=== PATIENT | female | born 1955 | race Caucasian/White ===

== ENCOUNTER 2016-09-09 14:46 | Emergency (ER) | payer BC, OTHER ==
[2016-09-09 14:51] VITALS: BP 138/87; PULSE 98; TEMP 98.1; BMI 30.1
[2016-09-09] MEDS ORDERED: predniSONE 20 MG TABLET (UD) PO ONE (15:26)
[2016-09-09] MEDS ORDERED: predniSONE 20 MG TABLET (UD) ONE (15:29)
--- NOTE | 2016-09-09 15:34 | PDOC ---
History of Present Illness - General Chief Complaint: Rash Stated Complaint: RASH Time Seen by Provider: 09/09/16 14:51 History Source: Patient Exam Limitations: No Limitations - History of Present Illness Initial Comments: 09/09/16 15:27 60 yr female with history of itchy rash for 3 days. Pt used a different body soap in the shower also started taking tessalon perles about 5 days ago. Pt denies SOB no chest pain, rash is to arms, back, buttocks . Timing/Duration: reports: week Severity: Yes: mild Location: reports: generalized Respiratory Risk Factors: reports: medications, soaps Past History - Past Medical History Allergies/Adverse Reactions: Allergies Allergy/AdvReac Type Severity Reaction Status Date / Time No Known Allergies Allergy Verified 09/09/16 14:51 Home Medications: Ambulatory Orders Zolpidem Tartrate [Ambien] 5 mg PO HS 06/08/12 Guaifenesin Dm [Mucinex Dm -] 1 tab PO BID #14 tab.er.12h 09/23/15 Levofloxacin [Levaquin] 750 mg PO DAILY #7 tablet 09/23/15 Diphenhydramine HCl [Benadryl -] 25 mg PO Q6H PRN #20 capsule 09/09/16 Famotidine [Pepcid -] 20 mg PO DAILY #7 tablet 09/09/16 Prednisone [Deltasone -] 20 mg PO DAILY #7 tablet 09/09/16 Diabetes: Yes (no medications) HTN: Yes - Surgical History Abdominal Surgery: Yes Appendectomy: Yes Cholecystectomy: Yes - Immunization History Immunization Up to Date: No - Psycho/Social/Smoking Cessation Hx Anxiety: No Suicidal Ideation: No Smoking Status: No Smoking History: Never smoked Have you smoked in the past 12 months: No Number of Cigarettes Smoked Daily: 0 Information on smoking cessation initiated: No Hx Alcohol Use: No Drug/Substance Use Hx: No Substance Use Type: None Review of Systems - Review of Systems Able to Perform ROS?: Yes Is the patient limited [place] proficient: No Constitutional: No: Symptoms Reported HEENTM: No: Symptoms Reported Respiratory: No: Symptoms reported Cardiac (ROS): No: Symptoms Reported ABD/GI: No: Symptoms Reported : No: Symptoms Reported Musculoskeletal: No: Symptoms Reported Integumentary: Yes: See HPI *Physical Exam - Vital Signs Last Vital Signs Temp Pulse Resp BP Pulse Ox 98.1 F 98 H 17 138/87 99 09/09/16 14:49 09/09/16 14:49 09/09/16 14:49 09/09/16 14:49 09/09/16 14:49 - Physical Exam General Appearance: Yes: Nourished, Appropriately Dressed HEENT: positive: EOMI, KIRK, TMs Normal, Pharynx Normal Neck: positive: Supple Respiratory/Chest: positive: Lungs Clear, Normal Breath Sounds Cardiovascular: positive: Regular Rhythm, Regular Rate Gastrointestinal/Abdominal: positive: Normal Bowel Sounds, Soft Musculoskeletal: positive: Normal Inspection Extremity: positive: Normal Capillary Refill, Normal Inspection, Normal Range of Motion Integumentary: positive: Normal Color, Dry, Warm, Rash (generalised erythematous hives ) Neurologic: positive: Fully Oriented, Alert, Normal Mood/Affect, Normal Response , Motor Strength 5/5 Medical Decision Making - Medical Decision Making 09/09/16 15:28 cc: rash allergic reaction to possible the soap or tessalon will give benadryl, prednisone pt will f/u sunday with PMD no resp symptoms no GI symptoms. *DC/Admit/Observation/Transfer Diagnosis at time of Disposition: Allergic urticaria - Discharge Dispostion Disposition: HOME Condition at time of disposition: Good - Prescriptions Prescriptions: Diphenhydramine HCl [Benadryl -] 25 mg PO Q6H PRN #20 capsule PRN Reason: itching Prednisone [Deltasone -] 20 mg PO DAILY #7 tablet Famotidine [Pepcid -] 20 mg PO DAILY #7 tablet - Referrals Referrals: Nguyễn Youngblood MD [Primary Care Provider] - - Patient Instructions Additional Instructions: cool water only nothing hot take the medication as prescribed follow with your doctor Sunday avoid the soap that you had used before return to ER for any worsening symptoms - Post Discharge Activity
== END 2016-09-09 16:28 | disposition home or self-care (01) ==
LOC: JERFT 14:46
PROC: 3E033GQ Introduction of Glucarpidase into Peripheral Vein, Percutaneous Approach (ICD-10-PCS; principal; 2016-09-09)
DX: L50.0 Allergic urticaria (principal); I10 Essential (primary) hypertension; E11.9 Type 2 diabetes mellitus without complications
CPT/HCPCS: 96372; 99281-25

== ENCOUNTER 2022-12-26 06:05 | Day surgery (SDC) | payer OTHER, BC ==
[2022-12-14 13:59] VITALS: BMI 31.6
[2022-12-26] MEDS ORDERED: CEFAZOLIN 2 GM in DEXTROSE 5%-WATER - 50 ML IVPB ONE (06:32)
[2022-12-26] MEDS ORDERED: TRANEXAMIC ACID 1000 MG/10 ML VIAL IVPUSH ONE (06:32)
[2022-12-26] MEDS: CELECOXIB 200 MG CAPSULE PO ONE ×2 (06:50→13:18)
[2022-12-26] MEDS ORDERED: VANCOMYCIN 1,000 MG VIAL (RESTRICTED TO ID ONLY) ONE (07:21)
[2022-12-26] MEDS ORDERED: ceFAZolin SODIUM 1 GM VIAL ONE ×2 (07:22→07:59)
[2022-12-26] MEDS ORDERED: BUPIVACAINE LIPOSOME/PF (EXPAREL) 266 MG/20 ML VIAL ONE (07:46)
[2022-12-26] MEDS ORDERED: MIDAZOLAM HCL 2 MG/2 ML SINGLE DOSE VIAL ONE (07:46)
[2022-12-26] MEDS ORDERED: BUPIVACAINE HCL/PF 0.5% (5MG/ML) 10 ML VIAL ONE (07:47)
[2022-12-26] MEDS ORDERED: ONDANSETRON 4 MG/2 ML VIAL IVPUSH PRN ×2 (07:56→09:56)
[2022-12-26] MEDS ORDERED: DEXAMETHASONE SOD PHOSPHATE 4 MG/1 ML VIAL ONE (07:59)
[2022-12-26] MEDS ORDERED: TRANEXAMIC ACID 1000 MG/10 ML VIAL ONE (07:59)
[2022-12-26] MEDS ORDERED: LACTATED RINGERS SOLUTION 1,000 ML IV SCH (08:00)
[2022-12-26] MEDS ORDERED: PROPOFOL 20 ML ONE (08:19)
[2022-12-26] MEDS ORDERED: SUCCINYLCHOLINE CHLORIDE 200 MG/10 ML SYRINGE ONE (08:20)
[2022-12-26] MEDS ORDERED: oxyCODONE HCL 5 MG TABLET PO PRN (09:57)
[2022-12-26] MEDS ORDERED: KETOROLAC TROMETHAMINE 30 MG/1 ML VIAL ONE (10:13)
[2022-12-26] MEDS ORDERED: ONDANSETRON 4 MG/2 ML VIAL ONE (10:13)
[2022-12-26] MEDS ORDERED: ACETAMINOPHEN INJECTION 100 ML IVPB ONE (10:13)
[2022-12-26] MEDS: KETOROLAC TROMETHAMINE 30 MG/1 ML VIAL IVPUSH SCH ×3 (10:18→18:54)
[2022-12-26] MEDS: ACETAMINOPHEN 1000 MG/100 ML BAG IVPB ONE ×2 (10:18→13:20)
[2022-12-26] MEDS: LOSARTAN POTASSIUM 50 MG TABLET PO SCH ×2 (13:19→14:16)
[2022-12-26] MEDS: metFORMIN HCL 500 MG TABLET (FP) PO SCH ×2 (13:19→16:55)
[2022-12-26] MEDS: LEVOTHYROXINE NA 50 MCG TABLET (FP) PO SCH (13:19)
[2022-12-26] MEDS: oxyCODONE HCL 10 MG SUSTAINED ACTING TABLET PO SCH ×2 (13:20→21:26)
[2022-12-26] MEDS: oxyCODONE HCL 5 MG TABLET PO PRN (14:16)
[2022-12-26] MEDS: PANTOPRAZOLE 40 MG TABLET PO SCH (14:16)
[2022-12-26] MEDS: MULTIVITAMINS (DAILY MVI) TABLET (FP) PO SCH (14:16)
[2022-12-26] MEDS: SENNOSIDES/DOCUSATE COMBO (SENNA PLUS) TABLET (UD) PO SCH ×2 (14:16→21:26)
[2022-12-26] MEDS: CEFAZOLIN 2 GM in DEXTROSE 5%-WATER 100 ML IVPB SCH (16:55)
[2022-12-26] MEDS: ACETAMINOPHEN 500 MG TABLET (FP) PO SCH ×2 (18:53→21:25)
[2022-12-26] MEDS ORDERED: ZOLPIDEM TARTRATE 5 MG TABLET PO PRN (22:00)
[2022-12-26] MEDS ORDERED: PREGABALIN 100 MG CAPSULE PO SCH (22:00)
[2022-12-26] MEDS ORDERED: ATORVASTATIN CA 20 MG TABLET (FP) PO SCH (22:00)
[2022-12-27] MEDS: CEFAZOLIN 2 GM in DEXTROSE 5%-WATER 100 ML IVPB SCH
[2022-12-27 01:23] VITALS: RESP 17
[2022-12-27] MEDS: ACETAMINOPHEN 500 MG TABLET (FP) PO SCH ×2 (05:00→09:23)
[2022-12-27] MEDS: metFORMIN HCL 500 MG TABLET (FP) PO SCH (06:07)
[2022-12-27] MEDS: LEVOTHYROXINE NA 50 MCG TABLET (FP) PO SCH (06:07)
[2022-12-27] MEDS ORDERED: ASPIRIN 325 MG TABLET PO SCH (08:00)
[2022-12-27 08:41] LABS: HEMATOCRIT 26.5 % (32.4-45.2); HEMOGLOBIN 8.7 G/dL (10.7-15.3); MCH 27.2 pg (25.7-33.7); MCHC 32.9 g/dl (32.0-36.0); MEAN CELL VOLUME 82.6 fl (80-96); MEAN PLT VOLUME 9.6 fl (7.5-11.1); PLATELET COUNT 152.3 10^3/uL (134-434); RBC 3.21 10^6/uL (3.60-5.2); RDW 17.6 % (11.6-15.6); WHITE BLOOD COUNT 7.1 10^3/uL (4.0-10.8)
[2022-12-27] MEDS: LACTATED RINGERS SOLUTION 1,000 ML IV SCH ×2 (09:21→09:22)
[2022-12-27] MEDS: PANTOPRAZOLE 40 MG TABLET PO SCH (09:22)
[2022-12-27] MEDS: LOSARTAN POTASSIUM 50 MG TABLET PO SCH (09:22)
[2022-12-27] MEDS: oxyCODONE HCL 10 MG SUSTAINED ACTING TABLET PO SCH (09:23)
[2022-12-27] MEDS: SENNOSIDES/DOCUSATE COMBO (SENNA PLUS) TABLET (UD) PO SCH (09:23)
[2022-12-27] MEDS: MULTIVITAMINS (DAILY MVI) TABLET (FP) PO SCH (09:23)
[2022-12-27 12:55] VITALS: BP 117/42; PULSE 67; TEMP 97.4
[2022-12-27] MEDS: oxyCODONE HCL 5 MG TABLET PO PRN (13:02)
== END 2022-12-27 15:40 | disposition home health service (06) ==
LOC: FASU 06:05 → FASUSAT 06:05 → FM/S 11:23 → FASUSAT 12-27 15:40
PROVIDERS: ATTEND Orthopaedic Surgery
PROC: 8E0Y0CZ Robotic Assisted Procedure of Lower Extremity, Open Approach (ICD-10-PCS; 2022-12-26)
PROC: 0SRC0J9 Replacement of Right Knee Joint with Synthetic Substitute, Cemented, Open Approach (ICD-10-PCS; principal; 2022-12-26 08:30)
DX: M17.11 Unilateral primary osteoarthritis, right knee (principal)
CPT/HCPCS: 20985; 27447; C1776; S2900; 36415; 73560-TC-RT-FY; 82962; 85027; 94760; 97010-GP; 97116-GP; 97162-GP; C1713

== ENCOUNTER 2023-05-09 04:15 | Day surgery (SDC) | payer BC, OTHER ==
[2023-05-07 17:59] VITALS: BMI 30.1
[2023-05-09 06:18] VITALS: RESP 20
[2023-05-09] MEDS ORDERED: LIDOCAINE HCL 1%, 10 MG/ML (20ML VIAL) ONE (07:21)
[2023-05-09] MEDS ORDERED: LIDOCAINE HCL 1%, 10 MG/ML (20ML VIAL) INF ONE ×2 (07:26→08:12)
[2023-05-09 09:51] VITALS: BP 136/60; PULSE 70; TEMP 98
== END 2023-05-09 09:30 | disposition home or self-care (01) ==
LOC: JASU-SURG 04:15
PROVIDERS: ATTEND Orthopaedic Surgery
PROC: 015D3ZZ Destruction of Femoral Nerve, Percutaneous Approach (ICD-10-PCS; principal; 2023-05-09 08:00)
DX: M17.11 Unilateral primary osteoarthritis, right knee (principal)